=== PATIENT | male | born 1970 | race Caucasian/White ===

== ENCOUNTER 2016-12-21 19:18 | Emergency (ER) | payer SELFPAY ==
[~2016-12-21 19:18] MED LIST: DICL25 PO; NAPR220T95 PO
[2016-12-21 19:47] VITALS: BP 127/78; PULSE 117; RESP 20; TEMP 98.8; O2SAT 93; O2SAT 95
[2016-12-21] MEDS ORDERED: METF500T PO (19:47)
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
[2016-12-21] MEDS ORDERED: SODIUM CHLORIDE 0.9% FLUSH 10 ML FLUSH IVF PRN (20:00)
[2016-12-21] MEDS ORDERED: RESP: ALBUTEROL 2.5 MG/IPRATROPIUM 0.5 MG NEB (SCH) NEB ONE (20:00)
[2016-12-21 20:22] LABS: AUTOMATED NEUTROPHIL # 4.3 TH/MM3 (1.8-7.7); BASOPHIL % 0.7 % (0.0-2.0); EOSINOPHIL # 0.2 TH/MM3 (0-0.4); EOSINOPHIL % 2.8 % (0.0-4.0); HEMATOCRIT 45.5 % (39.0-51.0); HEMO FLAGS DIFF FINAL; LYMPH % 17.7 % (9.0-44.0); LYMPHOCYTE # 1.1 TH/MM3 (1.0-4.8); MEAN CELL VOLUME 87.7 FL (80.0-100.0); MEAN CORPUSCULAR HEMOGLOBIN 29.1 PG (27.0-34.0); MEAN CORPUSCULAR HGB CONC 33.1 % (32.0-36.0); MONO % 8.7 % (0.0-8.0); NEUT % 70.1 % (16.0-70.0); PLATELET COUNT 222 TH/MM3 (150-450); RED BLOOD COUNT 5.19 MIL/MM3 (4.50-5.90); RED CELL DISTRIBUTION WIDTH 13.3 % (11.6-17.2); WHITE BLOOD COUNT 6.1 TH/MM3 (4.0-11.0)
--- NOTE | 2016-12-21 20:34 | RADRPT ---
EXAM DATE/TIME: 12/21/2016 19:49 [facility] COMPARISON: CHEST SINGLE AP, June 15, 2015, 22:23. INDICATIONS : Cough, chest pain, and shortness of breath. MEDICAL HISTORY : Diabetes mellitus type II. SURGICAL HISTORY : Coronary artery stent. ENCOUNTER: Initial ACUITY: 3 days PAIN SCORE: 5/10 LOCATION: Bilateral chest FINDINGS: A single view of the chest demonstrates the lungs to be symmetrically aerated without evidence of mas s, infiltrate or effusion. The cardiomediastinal contours are unremarkable. Osseous structures are intact. CONCLUSION: No acute disease. Saúl Underwood MD on December 21, 2016 at 20:32 Board Certified Radiologist. This report was verified electronically.
[2016-12-21 20:38] VITALS: PULSE 109; RESP 16; O2SAT 97
[2016-12-21] MEDS ORDERED: SODIUM CHLOR 0.9% 1000 ML INJ 1,000 ML IV SCH (20:45)
[2016-12-21 20:51] LABS: ALKALINE PHOSPHATASE 127 U/L (45-117); TOTAL BILIRUBIN ADULT 0.3 MG/DL (0.2-1.0)
[2016-12-21 21:02] LABS: ALT (GPT) 50 U/L (12-78); ANION GAP 12 MEQ/L (5-15); AST (GOT) 38 U/L (15-37); BICARBONATE 24.1 MEQ/L (21.0-32.0); BLOOD UREA NITROGEN 15 MG/DL (7-18); CHLORIDE 101 MEQ/L (98-107); GLOMERULAR FILTRATION RATE 85 ML/MIN (>89); SODIUM (NA) 137 MEQ/L (136-145)
[2016-12-21 21:24] LABS: POTASSIUM 3.5 MEQ/L (3.5-5.1)
[2016-12-21] MEDS ORDERED: IOHEXOL 350 MG/ML 10 ML VIAL (for RAD DIAG) IV ONE (22:45)
--- NOTE | 2016-12-21 22:51 | RADRPT ---
EXAM DATE/TIME: 12/21/2016 22:27 [facility] COMPARISON: CT PULMONARY ANGIOGRAM, September 12, 2014, 8:32. INDICATIONS : Left sided chest pain. IV CONTRAST: 75 cc Omnipaque 350 (iohexol) IV RADIATION DOSE: 23.17 CTDIvol (mGy) MEDICAL HISTORY : Myocardial infarction. Hypertension. Coronary artery disease. Diabetes. SURGICAL HISTORY : Coronary artery stent. ENCOUNTER: Initial ACUITY: 1 day PAIN SCALE: 1/10 LOCATION: Left chest TECHNIQUE: Volumetric scanning of the chest was performed using a pulmonary embolism protocol MIP images were re constructed. Using automated exposure control and adjustment of the mA and/or kV according to patien t size, radiation dose was kept as low as reasonably achievable to obtain optimal diagnostic quality images. DICOM format image data is available electronically for review and comparison. Follow-up recommendations for incidentally detected pulmonary nodules are based at a minimum on nodul e size and patient risk factors according to Fleischner Society Guidelines. FINDINGS: Minimal linear scarring in the lingula. There is no evidence of pneumonia. No evidence of pulmonary e mbolism. No adenopathy. No effusions. Osseous structures are intact.. CONCLUSION: 1. No evidence for pulmonary embolism. Saúl Underwood MD on December 21, 2016 at 22:48 Board Certified Radiologist. This report was verified electronically.
[2016-12-21] MEDS ORDERED: chlordiazePOXIDE 25 MG CAP PO ONE (23:15)
[2016-12-22] MEDS ORDERED: PRED20 PO (00:24)
[2016-12-22] MEDS ORDERED: ALBUAER3 INH (00:24)
--- NOTE | 2016-12-22 08:59 | EKG ---
Date Performed: 12/21/2016 Time Performed: 19:47:14 PTAGE: 46 years EKG: SINUS TACHYCARDIA BORDERLINE LEFT AXIS DEVIATION INCOMPLETE RIGHT BUNDLE BRANCH BLOCK ABNOR MAL RHYTHM ECG PREVIOUS TRACING : 06/17/2015 23.44 DOCTOR: Bo Hinson Interpretating Date/Time 12/22/2016 08:58:39
== END 2016-12-22 00:46 | disposition home or self-care (01) ==
LOC: NEPE 19:18
DX: J40 Bronchitis, not specified as acute or chronic (principal); R07.9 Chest pain, unspecified; R00.0 Tachycardia, unspecified; I45.10 Unspecified right bundle-branch block; R94.31 Abnormal electrocardiogram [ECG] [EKG]; E11.65 Type 2 diabetes mellitus with hyperglycemia; I10 Essential (primary) hypertension; I25.10 Atherosclerotic heart disease of native coronary artery without angina pectoris; M13.80 Other specified arthritis, unspecified site; I25.2 Old myocardial infarction
CPT/HCPCS: 71010; 71275; 80053; 83690; 83735; 83880; 84484; 85025; 93005; 94664; 96360; 99285; J7030; Q9967

== ENCOUNTER 2017-01-31 17:38 | Emergency (ER) | payer SELFPAY ==
[~2017-01-31] VITALS: Ht 180.3 cm; Wt 101.0 kg
[~2017-01-31 17:38] MED LIST changes: +ALBUAER3 INH; -DICL25 PO; +METF500T PO; -NAPR220T95 PO; +PRED20 PO
[2017-01-31 17:43] VITALS: BP 135/95; PULSE 115; RESP 16; TEMP 98.5; O2SAT 98
[2017-01-31] MEDS ORDERED: ALEV220T14 PO ×2 (19:10)
[2017-01-31] MEDS ORDERED: SECU1INJ3 IM (19:12)
== END 2017-01-31 19:30 | disposition left against medical advice (07) ==
LOC: PHED 17:38 → PHEFT 19:30
DX: S99.912A Unspecified injury of left ankle, initial encounter (principal); X58.XXXA Exposure to other specified factors, initial encounter
CPT/HCPCS: 99281

== ENCOUNTER 2017-10-19 18:10 | Emergency (ER) | payer SELFPAY ==
[~2017-10-19] VITALS: Ht 180.3 cm; Wt 105.0 kg
[~2017-10-19 18:10] MED LIST changes: -ALBUAER3 INH; +ALEV220T14 PO; -METF500T PO; -PRED20 PO; +SECU1INJ3 IM
[2017-10-19 18:15] VITALS: BP 123/82; PULSE 108; RESP 18; TEMP 98.7; O2SAT 95
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
[2017-10-19] MEDS ORDERED: SODIUM CHLORIDE 0.9% FLUSH 10 ML FLUSH IVF PRN (18:45)
--- NOTE | 2017-10-21 12:01 | EKG ---
Date Performed: 10/19/2017 Time Performed: 18:18:04 PTAGE: 47 years EKG: SINUS TACHYCARDIA POSSIBLE RIGHT VENTRICULAR CONDUCTION DELAY ABNORMAL RHYTHM ECG INTERPRET ATION BASED ON A DEFAULT AGE OF 38 YEARS PREVIOUS TRACING : 12/21/2016 19.47 DOCTOR: Xena Yu Interpretating Date/Time 10/21/2017 11:52:49
== END 2017-10-19 21:59 | disposition left against medical advice (07) ==
LOC: NEPC 18:10
DX: R07.9 Chest pain, unspecified (principal); R00.0 Tachycardia, unspecified
CPT/HCPCS: 93005

== ENCOUNTER 2017-11-01 16:42 | Emergency (ER) | payer SELFPAY ==
[~2017-11-01] VITALS: Ht 180.3 cm; Wt 102.0 kg
[2017-11-01] MEDS ORDERED: MORPHINE SULFATE 4 MG/ML INJ IV PUSH ONE ×2 (17:00→18:00)
[2017-11-01 17:04] VITALS: BP 162/95; PULSE 113; RESP 16; TEMP 99.9; O2SAT 97
[2017-11-01 17:15] LABS: AUTOMATED NEUTROPHIL # 3.1 TH/MM3 (1.8-7.7); BASOPHIL # 0.1 TH/MM3 (0-0.2); EOSINOPHIL # 0.2 TH/MM3 (0-0.4); EOSINOPHIL % 3.8 % (0.0-4.0); HEMOGLOBIN 15.4 GM/DL (13.0-17.0); LYMPH % 22.8 % (9.0-44.0); LYMPHOCYTE # 1.2 TH/MM3 (1.0-4.8); MEAN CELL VOLUME 88.6 FL (80.0-100.0); MEAN CORPUSCULAR HEMOGLOBIN 29.7 PG (27.0-34.0); MEAN CORPUSCULAR HGB CONC 33.5 % (32.0-36.0); MEAN PLATELET VOLUME 8.5 FL (7.0-11.0); MONO % 9.7 % (0.0-8.0); MONOCYTE # 0.5 TH/MM3 (0-0.9); NEUT % 62.7 % (16.0-70.0); PLATELET COUNT 153 TH/MM3 (150-450); RED BLOOD COUNT 5.19 MIL/MM3 (4.50-5.90); WHITE BLOOD COUNT 5.1 TH/MM3 (4.0-11.0)
[2017-11-01 17:28] LABS: CALCIUM 8.9 MG/DL (8.5-10.1)
[2017-11-01 17:29] LABS: BICARBONATE 26.6 MEQ/L (21.0-32.0)
[2017-11-01 17:32] LABS: CREATININE 0.96 MG/DL (0.60-1.30)
--- NOTE | 2017-11-01 17:52 | RADRPT ---
EXAM DATE: 11/01/2017 5:39 PM EDT AGE/SEX: 47 years / Male INDICATIONS: Chest and back pain. Patient fell off a 23 foot scoffold today. CLINICAL DATA: This is the patient's initial encounter. Patient reports that signs and symptoms have been present for 1 day and indicates a pain score of 10/10. MEDICAL/SURGICAL HISTORY: Hypertension. Myocardial infarction. Diabetes. Arthritis. Coronary a rtery stent. Orthopedic, left leg. COMPAR[place]: [facility] [place], 12/21/[place]. . FINDINGS: A single AP view of the chest demonstrates the lungs to be symmetrically aerated without evidence of mass, infiltrate or effusion. The cardiomediastinal contours are unremarkable. Osseous structures a re intact. CONCLUSION: No acute cardiopulmonary findings. Stable compared to a prior dated 12/21/2016. Electronically signed by: Favian Hanks MD 11/01/2017 5:51 PM EDT
--- NOTE | 2017-11-01 18:28 | RADRPT ---
EXAM DATE: 11/01/2017 6:23 PM EDT AGE/SEX: 47 years / Male INDICATIONS: Fell off a 23foot scaffold. Pain. CLINICAL DATA: This is the patient's initial encounter. Patient reports that signs and symptoms have been present for 1 day and indicates a pain score of 8/10. MEDICAL/SURGICAL HISTORY: Cardiovascular disease. Hypertension. Diabetes. Coronary artery stent. RADIATION DOSE: 61.62 CTDI (mGy) COMPARISON: [facility] [place], [place] BRAIN W/O CONTRAST, 01/14/2013. . TECHNIQUE: CT of the head without contrast. Using automated exposure control and adjustment of the mA and/or kV according to patient size, radiation dose was kept as low as reasonably achievable to ob tain optimal diagnostic quality images. FINDINGS: Ventricular size is appropriate. There is no parenchymal hemorrhage, acute infarction or mass lesion. There are no extra-axial fluid collections appreciated The posterior fossa is unremarkable midline fourth ventricle The orbits and perineal sinuses visualized are unremarkable Review of bone windows reveals no skull fracture. CONCLUSION: 1. Negative noncontrast axial head CT. Electronically signed by: Amos Hanks MD 11/01/2017 6:27 PM EDT
[2017-11-01] MEDS ORDERED: IOHEXOL 350 MG/ML 10 ML VIAL (for RAD DIAG) IVCONTRAST ONE (18:39)
--- NOTE | 2017-11-01 18:43 | RADRPT ---
EXAM DATE: 11/01/2017 6:40 PM EDT AGE/SEX: 47 years / Male INDICATIONS: Fell off a 23foot scaffold. Pain. CLINICAL DATA: This is the patient's initial encounter. Patient reports that signs and symptoms have been present for 1 day and indicates a pain score of 8/10. MEDICAL/SURGICAL HISTORY: Cardiovascular disease. Hypertension. Diabetes. Coronary artery stent. RADIATION DOSE: 23.80 CTDI (mGy) ; Combined studies COMPARISON: No prior [facility] exams available for comparison. TECHNIQUE: Multiple contiguous axial images were obtained through the chest during bolus infusion of 95 ml Omnipaque 350 (iohexol) nonionic water-soluble contrast as a cumulative dose for multiple exa ms. Images were obtained in suspended respiration using multiple row detector helical technique. U sing automated exposure control and adjustment of the mA and/or kV according to patient size, radiati on dose was kept as low as reasonably achievable to obtain optimal diagnostic quality images. FINDINGS: The lungs are clear. There is no pneumothorax. There is no axillary adenopathy. The mediastinum is intact. There is no mediastinal adenopathy There is no pericardial effusion Moderate fatty replacement to the liver Clavicles, scapula and thoracic spine intact. I don't see a displaced fracture. Degenerative changes at the sternoclavicular joint. CONCLUSION: 1. I replacements the liver, negative for acute traumatic injury. Electronically signed by: Amos Hanks MD 11/01/2017 6:42 PM EDT
--- NOTE | 2017-11-01 18:49 | RADRPT ---
EXAM DATE: 11/01/2017 6:42 PM EDT AGE/SEX: 47 years / Male INDICATIONS: Fell off a 23foot scaffold. Pain. CLINICAL DATA: This is the patient's initial encounter. Patient reports that signs and symptoms have been present for 1 day and indicates a pain score of 8/10. MEDICAL/SURGICAL HISTORY: Cardiovascular disease. Hypertension. Diabetes. Coronary artery lauri nt. ORAL CONTRAST: No oral contrast ingested. RADIATION DOSE: 23.80 CTDI (mGy) ; Combined studies COMPARISON: No prior [facility] exams available for comparison. TECHNIQUE: Multiple contiguous axial images were obtained through the abdomen and pelvis following b olus infusion of 95 ml Omnipaque 350 (iohexol) nonionic water-soluble contrast as a cumulative dose for multiple exams. No oral contrast ingested. Using automated exposure control and adjustment of t he mA and/or kV according to patient size, the radiation dose was kept as low as reasonably achievabl e to obtain optimal diagnostic quality images. FINDINGS: The lower lungs visualized are clear. Moderate fatty replacement to the liver. The gallbladder is unremarkable Spleen, pancreas and adrenals appear normal Symmetrical renal function without mass or contusion Mesentery intact without contusion The pelvis diverticuli are present in the sigmoid colon Prominent bladder Review of bone windows reveals degenerative changes in the thoracolumbar spine. Degenerative changes both SI joints. CONCLUSION: 1. Negative for acute traumatic injury. Electronically signed by: Amos Hanks MD 11/01/2017 6:48 PM EDT
--- NOTE | 2017-11-01 18:57 | RADRPT ---
EXAM DATE: 11/01/2017 6:42 PM EDT AGE/SEX: 47 years / Male INDICATIONS: Fell off a 23foot scaffold. Pain. CLINICAL DATA: This is the patient's initial encounter. Patient reports that signs and symptoms have been present for 1 day and indicates a pain score of 8/10. MEDICAL/SURGICAL HISTORY: Cardiovascular disease. Hypertension. Diabetes. Coronary artery lauri nt. RADIATION DOSE: 26.66 CTDI (mGy) COMPARISON: [facility] – [place], [place] CERVICAL SPINE W/O CONTRAST, 01/14/2013. . TECHNIQUE: Contiguous axial images were obtained using helical multirow detector technique. The vol umetric data was post-processed with multiplanar reconstruction in oblique axial, sagittal, and coron al planes. Using automated exposure control and adjustment of the mA and/or kV according to patient s ize, radiation dose was kept as low as reasonably achievable to obtain optimal diagnostic quality veda ges. FINDINGS: Vertebrae: Normal vertebral body height. Alignment: Normal. No subluxation. C2-3: Mild uncinate ridging without spinal stenosis or neural foraminal encroachment. C3-4: Moderate uncinate ridging with significant left neural foraminal encroachment. C4-5: Mild uncinate ridging without significant spinal stenosis or neural foraminal encroachment C5-6: Moderate uncinate ridging with moderate spinal stenosis and bilateral neural foraminal encroac hment. C6-7: Mild uncinate ridging with bilateral neural foraminal encroachment much worse on the left than the right. C7-T1: Mild uncinate ridging present. Neural foramen are adequate. Lung apices are clear. CONCLUSION: 1. Negative for degenerative changes as described above. The most significant finding is at C3-C4 on the left and C6-C7. Electronically signed by: Amos Hanks MD 11/01/2017 6:55 PM EDT
--- NOTE | 2017-11-01 19:17 | RADRPT ---
EXAM DATE: 11/01/2017 7:09 PM EDT AGE/SEX: 47 years / Male INDICATIONS: Fell off a 23foot scaffold. Pain. CLINICAL DATA: This is the patient's initial encounter. Patient reports that signs and symptoms have been present for 1 day and indicates a pain score of 8/10. MEDICAL/SURGICAL HISTORY: Cardiovascular disease. Hypertension. Diabetes. Coronary artery stent. RADIATION DOSE: . CTDI (mGy) ; Reconstructed from previous dataset, no dose COMPARISON: No prior [facility] exams available for comparison. TECHNIQUE: Contiguous axial images were acquired with a multirow detector CT scanner without contras t. Multiplanar reconstructions in the sagittal and coronal plane were also performed. Using automate d exposure control and adjustment of the mA and/or kV according to patient size, radiation dose was k ept as low as reasonably achievable to obtain optimal diagnostic quality images. FINDINGS: Vertebrae: Normal vertebral body height. No acute bony fracture. Mild primary bony degenerative aguilera ges of the lumbar spine. Alignment: Normal. No subluxation. T12-L1: The thecal sac has a normal diameter. No evidence of disc bulge or protrusion. The neural foramina are patent bilaterally. L1-L2: The thecal sac has a normal diameter. No evidence of disc bulge or protrusion. The neural f oramina are patent bilaterally. L2-L3: The thecal sac has a normal diameter. No evidence of disc bulge or protrusion. The neural f oramina are patent bilaterally. L3-L4: The thecal sac has a normal diameter. No evidence of disc bulge or protrusion. The neural f oramina are patent bilaterally. L4-L5: The thecal sac has a normal diameter. No evidence of disc bulge or protrusion. The neural f oramina are patent bilaterally. L5-S1: The thecal sac has a normal diameter. No evidence of disc bulge or protrusion. The neural f oramina are patent bilaterally. CONCLUSION: 1. No acute bony fracture. 2. Mild primary bony degenerative changes are seen throughout the lumbar spine. Electronically signed by: Pako Carr MD 11/01/2017 7:16 PM EDT
--- NOTE | 2017-11-01 19:22 | RADRPT ---
EXAM DATE: 11/01/2017 7:06 PM EDT AGE/SEX: 47 years / Male INDICATIONS: Fell off a 23foot scaffold. Pain. CLINICAL DATA: This is the patient's initial encounter. Patient reports that signs and symptoms have been present for 1 day and indicates a pain score of 8/10. MEDICAL/SURGICAL HISTORY: Cardiovascular disease. Hypertension. Diabetes. Coronary artery stent. RADIATION DOSE: . CTDI (mGy) ; Reconstructed from previous dataset, no dose COMPARISON: No prior [facility] exams available for comparison. TECHNIQUE: Contiguous axial images were acquired using a multirow detector CT scanner without contra st. Multiplanar reconstruction in the sagittal and coronal planes was performed. Using automated exp osure control and adjustment of the mA and/or kV according to patient size, radiation dose was kept a s low as reasonably achievable to obtain optimal diagnostic quality images. FINDINGS: Vertebrae: Normal vertebral body height.No acute bony fractures. No paraspinal soft tissue swelling. There are primary bony degenerative changes throughout the thoracic spine. Alignment: Normal. No subluxation. T1 - T2: Normal. T2 - T3: The thecal sac has a normal diameter. No evidence of disc bulge or protrusion. T3 - T4: The thecal sac has a normal diameter. No evidence of disc bulge or protrusion. T4 - T5: The thecal sac has a normal diameter. No evidence of disc bulge or protrusion. T5 - T6: The thecal sac has a normal diameter. No evidence of disc bulge or protrusion. T6 - T7: The thecal sac has a normal diameter. No evidence of disc bulge or protrusion. T7 - T8: The thecal sac has a normal diameter. No evidence of disc bulge or protrusion. T8 - T9: The thecal sac has a normal diameter. No evidence of disc bulge or protrusion. T9 - T10: The thecal sac has a normal diameter. No evidence of disc bulge or protrusion. T10 - T11: The thecal sac has a normal diameter. No evidence of disc bulge or protrusion. T11 - T12: The thecal sac has a normal diameter. No evidence of disc bulge or protrusion. T12 - L1: The thecal sac has a normal diameter. No evidence of disc bulge or protrusion. CONCLUSION: 1. No acute bony fracture. 2. Primary degenerative changes are noted throughout the thoracic spine. Electronically signed by: Pako Carr MD 11/01/2017 7:20 PM EDT
--- NOTE | 2017-11-01 19:32 | PD ---
HPI Chief Complaint: Fall Time Seen by Provider: 16:57 Travel History International Travel<30 days: Yes Contact w/Intl Traveler<30days: Yes Name of Country Traveled to: [place] Traveled to known affect area: No History of Present Illness HPI This is a 47-year-old male who presents to the emergency department having had a fall. He says he was on the second story of scaffolding when a new employee moved equipment incorrectly and he was pushed off and fell. He says he landed on his back and bite. He reports severe back pain, constant, worse with moving , improved with rest with no associated weakness or numbness. He says that he drank alcohol earlier today because the pain was so bad. He is not sure if he hit his head. PFSH Past Medical History Hx Anticoagulant Therapy: Yes (aspirin) Arthritis: Yes Asthma: No Heart Rhythm Problems: No Cancer: No Cardiac Catheterization: Yes (2 stents placed) Cardiovascular Problems: Yes (stent) High Cholesterol: No Chest Pain: Yes Congestive Heart Failure: No Coronary Artery Disease: Yes Diabetes: Yes Patient Takes Glucophage: No (SUPOSED TO BUT DOES NOT) Diminished Hearing: No Endocrine: Yes Gastrointestinal Disorders: Yes Genitourinary: No Hepatitis: Yes (HEP C -PT DENIES) Hypertension: Yes Immune Disorder: No Implanted Vascular Access Dvce: Yes Musculoskeletal: Yes (MULTIPLE BROKEN BONES AFTER LORY DIVING ACCIDENT) Neurologic: No Psychiatric: No Reproductive: No Respiratory: No Immunizations Current: Yes Myocardial Infarction: Yes (x2) Thyroid Disease: No Tetanus Vaccination: < 5 Years Influenza Vaccination: Yes Past Surgical History Abdominal Surgery: No Body Medical Devices: rods/ screws in left tib fib Cardiac Surgery: Yes (stents x 2.) Coronary Artery Bypass Graft: No Coronary Stent: Yes (2010,2011 ) Genitourinary Surgery: No Pacemaker: No Thoracic Surgery: No Other Surgery: Yes (LEFT ANKLE SURGERY X2 /LEFT LEG SX) Social History Alcohol Use: Yes (6 PACK DAILY) Tobacco Use: No (CHEW) Substance Use: No Allergies-Medications (Allergen,Severity, Reaction): Coded Allergies: penicillin G (Unverified Allergy, Mild, Hives, 11/01/17) Per pt. 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 Reported Meds & Prescriptions Reported Meds & Active Scripts Active Reported Cosentyx Inj (Secukinumab Inj) 150 Mg/Ml Syr 2 Injection IM WEEKLY Aleve Arthritis (Naproxen Sodium) 220 Mg Tab 440 Mg PO DAILY Review of Systems Except as stated in HPI: all other systems reviewed are Neg Physical Exam Narrative GENERAL: Intoxicated with some slurred speech SKIN: Focused skin assessment warm and dry. HEAD: Atraumatic. Normocephalic. EYES: Pupils equal and round. No injection or drainage. ENT: Moist mucous membranes NECK: Trachea midline. Cervical collar in place. CARDIOVASCULAR: Regular rate and rhythm. No murmur appreciated. RESPIRATORY: Clear to auscultation. Breath sounds equal bilaterally. GASTROINTESTINAL: Abdomen soft, non-tender, nondistended. MUSCULOSKELETAL: Tender to palpation along the mid lumbar vertebral bodies. NEUROLOGICAL: Awake and alert. No obvious cranial nerve deficits. Moving all extremities. Data Data Last Documented VS Vital Signs Date Time Temp Pulse Resp B/P (MAP) Pulse Ox O2 Delivery O2 Flow Rate FiO2 11/01/17 19:42 11/01/17 17:04 93 Room Air 11/01/17 17:04 99.9 113 16 2.00 Orders Orders Complete Blood Count With Diff (11/01/17 16:57) Basic Metabolic Panel (Bmp) (11/01/17 16:57) Alcohol (Ethanol) (11/01/17 16:57) Ct Brain W/O Iv Contrast(Rout) (11/01/17 ) Ct Cerv Spine W/O Contrast (11/01/17 ) Ct Thorax/ Chest W Iv Contrast (11/01/17 ) Ct Abd/Pel W Iv Contrast(Rout) (11/01/17 ) Ct Lumb Spine W/O Contrast (11/01/17 ) Ct Thor Spine W/O Contrast (11/01/17 ) Chest, Single Ap (11/01/17 ) Morphine Inj (Morphine Inj) (11/01/17 17:00) Morphine Inj (Morphine Inj) (11/01/17 18:00) Electrocardiogram (11/01/17 16:49) Iohexol 350 Inj (Omnipaque 350 Inj) (11/01/17 18:39) Ed Discharge Order (11/01/17 19:32) Labs Laboratory Tests Test 11/01/17 17:00 White Blood Count 5.1 TH/MM3 Red Blood Count 5.19 MIL/MM3 Hemoglobin 15.4 GM/DL Hematocrit 46.0 % Mean Corpuscular Volume 88.6 FL Mean Corpuscular Hemoglobin 29.7 PG Mean Corpuscular Hemoglobin Concent 33.5 % Red Cell Distribution Width 12.0 % Platelet Count 153 TH/MM3 Mean Platelet Volume 8.5 FL Neutrophils (%) (Auto) 62.7 % Lymphocytes (%) (Auto) 22.8 % Monocytes (%) (Auto) 9.7 % Eosinophils (%) (Auto) 3.8 % Basophils (%) (Auto) 1.0 % Neutrophils # (Auto) 3.1 TH/MM3 Lymphocytes # (Auto) 1.2 TH/MM3 Monocytes # (Auto) 0.5 TH/MM3 Eosinophils # (Auto) 0.2 TH/MM3 Basophils # (Auto) 0.1 TH/MM3 CBC Comment DIFF FINAL Differential Comment Blood Urea Nitrogen 13 MG/DL Creatinine 0.96 MG/DL Random Glucose 306 MG/DL Calcium Level 8.9 MG/DL Sodium Level 138 MEQ/L Potassium Level 3.4 MEQ/L Chloride Level 102 MEQ/L Carbon Dioxide Level 26.6 MEQ/L Anion Gap 9 MEQ/L Estimat Glomerular Filtration Rate 83 ML/MIN Ethyl Alcohol Level 204 MG/DL MDM Medical Decision Making Medical Screen Exam Complete: Yes Emergency Medical Condition: Yes Interpretation(s) No leukocytosis Electrolytes are reassuring Alcohols 204 Last 24 hours Impressions Thoracic Spine CT 11/01/17 Signed Impressions: CONCLUSION: 1. No acute bony fracture. 2. Primary degenerative changes are noted throughout the thoracic spine. Lumbar Spine CT 11/01/17 Signed Impressions: CONCLUSION: 1. No acute bony fracture. 2. Mild primary bony degenerative changes are seen throughout the lumbar spine . Head CT 11/01/17 Signed Impressions: CONCLUSION: 1. Negative noncontrast axial head CT. Chest X-Ray 11/01/17 Signed Impressions: CONCLUSION: No acute cardiopulmonary findings. Stable compared to a prior dated 12/21/2016. Chest CT 11/01/17 Signed Impressions: CONCLUSION: 1. I replacements the liver, negative for acute traumatic injury. Cervical Spine CT 11/01/17 Signed Impressions: CONCLUSION: 1. Negative for degenerative changes as described above. The most significant finding is at C3-C4 on the left and C6-C7. Abdomen/Pelvis CT 5/29/18 0000 Signed Impressions: CONCLUSION: 1. Negative for acute traumatic injury. Differential Diagnosis Pneumothorax, hemothorax, splenic laceration, liver laceration, compression fracture Narrative Course This is a 47-year-old male who is intoxicated and reports that he fell off of second story scaffolding. On arrival he was tachycardic and he was placed on a monitor and an IV was established. Labs demonstrated an alcohol level of 204. CTs of the head, cervical spine, chest abdomen and pelvis were obtained all of which were reassuring. Patient became agitated towards the end of his visit and wanted to leave. I do not think he has any obvious acute injury and he will be discharged home. Diagnosis Primary Impression: Fall Qualified Codes: W19.XXXA - Unspecified fall, initial encounter Patient Instructions: General Instructions Additional Instructions: If you develop severe chest pain, shortness of breath, sweating, lightheadedness , dizziness or difficulty breathing return to the emergency department immediately. Followup with your primary care physician in 2-3 days if your symptoms are not resolved. Follow up with Keegan Jasso in regards to psychiatric or substance related issues at: [address] [place], [place] [id number] Med/Other Pt SpecificInfo: No Change to Meds Disposition: 01 DISCHARGE HOME Condition: Stable Fatemeh Obrien MD November 01, 2017 19:32
--- NOTE | 2017-11-02 14:13 | EKG ---
Date Performed: 11/01/2017 Time Performed: 16:49:58 PTAGE: 47 years EKG: SINUS TACHYCARDIA POSSIBLE RIGHT VENTRICULAR CONDUCTION DELAY ABNORMAL RHYTHM ECG PREVIOUS TRACING : 10/19/2017 18.18 DOCTOR: Bo Hinson Interpretating Date/Time 11/02/2017 14:12:18
== END 2017-11-01 19:46 | disposition home or self-care (01) ==
LOC: PHED 16:42
DX: F10.129 Alcohol abuse with intoxication, unspecified (principal); R00.0 Tachycardia, unspecified; M50.31 Other cervical disc degeneration, high cervical region; M50.323 Other cervical disc degeneration at C6-C7 level; R94.31 Abnormal electrocardiogram [ECG] [EKG]; W12.XXXA Fall on and from scaffolding, initial encounter
CPT/HCPCS: 70450; 71045; 71260; 72125; 72128; 72131; 74177; 80048; 80307; 85025; 93005; 96374; 96376; 99285; J2270; Q9967